=== PATIENT | male | born 1990 | race Caucasian/White ===

== ENCOUNTER 2022-10-01 18:39 | Emergency (ER) | payer OTHER ==
[~2022-10-01] VITALS: Ht 170.2 cm; Wt 77.1 kg
[2022-10-01 21:59] VITALS: BP 109/65
--- NOTE | 2022-10-02 06:30 | EKG ---
[facility] [place] [facility] [address] [place] [address] Signed Normal sinus rhythm Normal ECG No previous ECGs available Confirmed by WYATT HOLDER MD ([id number]) on 10/02/2022 6:30:15 AM Electronically Signed By: WYATT HOLDER 10/02/22 0630 PATIENT NAME: GIFTY EASTON Electrocardiogram DATE OF : 89 PHYSICIAN: WYATT HOLDER REPORT #: [id number] REPORT IS CONFIDENTIAL AND NOT TO BE RELEASED WITHOUT AUTHORIZATION
== END 2022-10-01 21:46 | disposition home or self-care (01) ==
LOC: ED 18:39
DX: R07.89 Other chest pain (principal)
CPT/HCPCS: 36415; 71045; 80053; 83735; 84484; 85025; 85379; 93005; 93010; 99285-25